=== PATIENT | male | born 1960 | race Caucasian/White ===

== ENCOUNTER → 2017-10-18 | Outpatient (CLI) | payer MEDICARE ==
--- NOTE | 2017-10-22 14:18 | XR ---
EXAMINATION TYPE: XR chest 2V DATE OF EXAM: 10/18/2017 COMPARISON: NONE HISTORY: History of bronchitis with cough for one month. TECHNIQUE: Frontal and lateral views of the chest are obtained. FINDINGS: Underlying emphysematous change is felt present on lateral view. There is no focal air spa ce opacity, pleural effusion, or pneumothorax seen. The cardiac silhouette size is within normal rose its. Slight scoliotic curvature is present. IMPRESSION: Chronic changes without acute pulmonary process.
== END | disposition home or self-care (01) ==
LOC: RADXRYALE 10:49
PROVIDERS: ATTEND Internal Medicine
DX: R05 Cough (principal)
CPT/HCPCS: 71046

== ENCOUNTER 2023-07-26 02:59 | Emergency (ER) | payer MEDICARE ==
--- NOTE | 2023-07-26 03:35 | ED ---
ENT HPI - General Chief complaint: ENT Stated complaint: ENT Time Seen by Provider: 07/26/23 03:10 Source: patient, EMS Mode of arrival: EMS Limitations: no limitations - History of Present Illness Initial comments: This patient is a 63-year-old man who arrives here is transferred from [facility]. He the patient sent here to have further evaluation related to mastoiditis. Patient had gone to the other facility tonight because he had gone out hunting and when he returned he noticed that he had increase in left ear swelling since he left home. He states there is a little bit of discomfort but would not call it pain frankly. He states that he had a little bit of swelling and it felt like there was water in his ear he went to see his primary doctor last Wednesday. He was started on Augmentin and polymyxin B drops to the left ear. Patient states he's been taking those as directed. He has not noted fevers. He is denying pain to the post auricular area. When he was seen at the other facility he had a computed tomography scan that showed thickening of the soft tissue of the external auditory canal narrowing. There was also phlegmon in the periauricular region. Trace mastoid effusion noted. The patient was given dose of IV Zosyn and transferred here to have further evaluation. Ear wick was placed. MD complaint: ear pain Location: L ear Severity: mild Severity scale (1-10): 1 Quality: dull Consistency: constant Improves with: none Worsens with: none - Related Data Previous Rx's Medication Instructions Recorded Dovxtjlb-Icurerqdo-Ft Otic 4 drops LEFT EAR TID #10 ml 07/26/23 [Cortisporin Otic Soln] Allergies Allergy/AdvReac Type Severity Reaction Status Date / Time No Known Allergies Allergy Verified 07/26/23 03:07 Review of Systems ROS Statement: Those systems with pertinent positive or pertinent negative responses have been documented in the HPI. ROS Other: All systems not noted in ROS Statement are negative. Constitutional: Denies: fever, chills, weakness ENT: Reports: ear pain. Denies: throat pain, hearing loss Respiratory: Reports: cough. 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 Absent: scleral icterus, conjunctival injection ENT exam: Present: other (There is edema of the left pinna. There is a wick obscuring the tympanic membrane. There is no postauricular tenderness.) Respiratory exam: Present: normal lung sounds bilaterally. Absent: respiratory distress, wheezes, rales, rhonchi, stridor Cardiovascular Exam: Present: regular rate, normal rhythm, normal heart sounds. Absent: systolic murmur, diastolic murmur, rubs, gallop GI/Abdominal exam: Present: soft. Absent: tenderness Extremities exam: Present: normal inspection, normal capillary refill. Absent: pedal edema, calf tenderness Course Vital Signs 07/26/23 07/26/23 03:02 06:26 Temperature 97.6 F 97.8 F Pulse Rate 67 83 Respiratory 16 18 Rate Blood Pressure 128/64 132/40 O2 Sat by Pulse 95 95 Oximetry - Reevaluation(s) Reevaluation #1: 07/26/23 06:24 Case discussed in detail with Dr. Means, he will have close follow-up with the patient. Discussed appropriate further care and follow-up as well as return parameters. Medical Decision Making - Medical Decision Making Was pt. sent in by a medical professional or institution (, [place], [employer], urgent care, hospital, or shelter...) When possible be specific @ -[Patient is transferred here from the other hospital Did you speak to anyone other than the patient for history (EMS, parent, family, police, friend...)? What history was obtained from this source @ -[I spoke with the transferring physician Did you review nursing and triage notes (agree or disagree)? Why? @ -[I reviewed and agree with nursing and triage notes] Were old charts reviewed (outside hosp., previous admission, EMS record, old EKG, old radiological studies, urgent care reports/EKG's, shelter records)? Report findings @ -[No old charts were reviewed] Differential Diagnosis (chest pain, altered mental status, abdominal pain women, abdominal pain men, vaginal bleeding, weakness, fever, dyspnea, syncope, headache, dizziness, GI bleed, back pain, seizure, CVA, palpatations, mental health, musculoskeletal)? @ -[Differential Headache: Migraine, tension, cluster, carbon monoxide, central venous thrombosis, pension karma temporal arteritis, acute closure glaucoma, intercranial hemorrhage, mastoiditis, sinusitis, head injury, this is not meant to be an all-inclusive list. EKG interpreted by me (3pts min.). @ -[As above] X-rays interpreted by me (1pt min.). @ -[None done] CT interpreted by me (1pt min.). @ -[None done] U/S interpreted by me (1pt. min.). @ -[None done] What testing was considered but not performed or refused? (CT, X-rays, U/S, labs)? Why? @ -[None] What meds were considered but not given or refused? Why? @ -[None] Did you discuss the management of the patient with other professionals (professionals i.e. , [place], [employer], lab, RT, psych nurse, director of social media marketing, tail sawyer, teacher, custom protection officer, bottle caser)? Give summary @ -[No] Was smoking cessation discussed for >3mins.? @ -[No] Was critical care preformed (if so, how long)? @ -[No] Were there social determinants of health that impacted care today? How? (Homeles sness, low income, unemployed, alcoholism, drug addiction, transportation, low edu. Level, literacy, decrease access to med. care, long-term, rehab)? @ -[No] Was there de-escalation of care discussed even if they declined (Discuss DNR or withdrawal of care, Hospice)? DNR status @ -[No] What co-morbidities impacted this encounter? (DM, HTN, Smoking, COPD, CAD, Cancer, CVA, ARF, Chemo, Hep., AIDS, mental health diagnosis, sleep apnea, morbid obesity)? @ -[None] Was patient admitted / discharged? Hospital course, mention meds given and route, prescriptions, significant lab abnormalities, going to OR and other pertinent info. @ -[Case is discussed with the ENT specialist who will have the patient taking course of antibiotics and close follow-up. We discussed appropriate return parameters, further care, follow-up Undiagnosed new problem with uncertain prognosis? @ -[No] Drug Therapy requiring intensive monitoring for toxicity (Heparin, Nitro, Insulin, Cardizem)? @ -[No] Were any procedures done? @ -[No] Diagnosis/symptom? @ -[Otitis externa Possible acute mastoiditis Acute, or Chronic, or Acute on Chronic? @ -[Acute Uncomplicated (without systemic symptoms) or Complicated (systemic symptoms)? @ -[Uncomplicated Side effects of treatment? @ -[No] Exacerbation, Progression, or Severe Exacerbation? @ -[No] Poses a threat to life or bodily function? How? (Chest pain, [place], [place], pneumonia, PE, COPD, DKA, ARF, appy, cholecystitis, CVA, Diverticulitis, Homicidal, Suicidal, threat to staff... and all critical care pts) @ -[No] Disposition Clinical Impression: Otitis externa Disposition: HOME SELF-CARE Condition: Good Instructions (If sedation given, give patient instructions): [facility] (ED) Additional Instructions: As we discussed, call the clinic on Wednesday to set up follow-up. If there is worsening before then return to the emergency department immediately. Prescriptions: Kyzdlovf-Vqptsrjdz-Qi Otic [Cortisporin Otic Soln] 4 drops LEFT EAR TID #10 ml Is patient prescribed a controlled substance at d/c from ED?: No Referrals: Francesca Hernandez MD [Primary Care Provider] - 1-2 days Mahendra Means MD [STAFF PHYSICIAN] - 1-2 days
[2023-07-26 06:54] VITALS: BP 132/40; PULSE 83; RESP 18; TEMP 97.8
== END 2023-07-26 06:39 | disposition home or self-care (01) ==
LOC: EC 02:59
DX: H60.92 Unspecified otitis externa, left ear (principal); Z87.891 Personal history of nicotine dependence
CPT/HCPCS: 99283